=== PATIENT | male | born 1960 | race Caucasian/White ===

== ENCOUNTER 2020-12-23 18:06 | Emergency (ER) | payer MEDICARE, SELFPAY ==
[2020-12-23 18:15] VITALS: BP 164/79; PULSE 74; RESP 16; TEMP 36.8; O2SAT 100; BMI 27.4
[2020-12-23 18:23] VITALS: PULSE 72; O2SAT 97
[2020-12-23 18:30] VITALS: PULSE 78; O2SAT 99
[2020-12-23 18:31] VITALS: BP 152/88; PULSE 72; O2SAT 99
--- NOTE | 2020-12-23 19:49 | [facility].EDGENADL ---
ED Disposition Clinical Impression: Laceration Disposition: Home, Self-Care Condition on Discharge: Good Instructions: DI for Laceration Repair Referrals: Sb Mcdermott [Primary Care Provider] - 3 days Time of Disposition: 19:52 - Critical Care Critical Care Time: No Attestation: On 12/23/20, the high probability of a clinically significant, sudden or life threatening deterioration of the following system(s) required my full and direct attention, intervention and personal management. The time I documented below is in addition to time spent performing reported procedures but includes the following listed in this critical care notation. Medical Decision Making - Medical Records Medical records reviewed: Yes: I reviewed the patient's medical records. - Cory Inquiry Pt receiving controlled substance: No Vital Signs: 12/23/20 18:15 12/23/20 18:23 12/23/20 18:30 Temperature 98.3 F Temperature Source Oral Pulse Rate 72 78 Pulse Rate [Right Radial] 74 Respiratory Rate 16 Blood Pressure Blood Pressure [Right Arm] 164/79 H Blood Pressure Mean Blood Pressure Mean [Right Arm] 107 Blood Pressure Source [Right Arm] Automatic Cuff Blood Pressure Position [Right Arm] Sitting 02 Sat by Pulse Oximetry 100 97 99 Oxygen Delivery Method Room Air 12/23/20 18:31 Temperature Temperature Source Pulse Rate 72 Pulse Rate [Right Radial] Respiratory Rate Blood Pressure 152/88 H Blood Pressure [Right Arm] Blood Pressure Mean 109 Blood Pressure Mean [Right Arm] Blood Pressure Source [Right Arm] Blood Pressure Position [Right Arm] 02 Sat by Pulse Oximetry 99 Oxygen Delivery Method Medical Decision Narrative: 60yo M presents to the emergency department for bleeding from his left ear. Patient is on anticoagulation chronically. Patient been holding pressure while waiting to be seen. Bleeding is stopped at time of my evaluation. He is in no acute distress otherwise. Dermabond was placed over the lesion to ensure he does not accidentally started bleeding again. Patient is appropriate stable for discharge home at this time. General Adult HPI - General Chief complaint: Wound/Laceration Stated complaint: Cut Ear Shaving Time Seen by Provider: 12/23/20 19:49 Mode of Arrival: Ambulatory Limitations: No Limitations Description of Symptoms (Recalled from ER Triage Doc. by RN): Cut ear while shaving - History of Present Illness HPI narrative: 60yo M on a blood thinner reports emergency department after cutting his left ear while shaving. Patient denies any pain. He states he was able to get the bleeding to stop initially but then touched his ear to show his son what he had done and the bleeding started again. He has been unable to control the bleeding since that time. He denies any other acute concerns this time. - Related Data Home Medications Medication Instructions Recorded Confirmed Apixaban [Eliquis] 5 mg PO BID 12/23/20 12/23/20 Allergies Allergy/AdvReac Type Severity Reaction Status Date / Time ciprofloxacin [From Cipro] Allergy Intermediate Verified 12/23/20 18:21 codeine Allergy Verified 12/23/20 18:21 [facility] History - Hepatitis A Screen Drug use history?: No High risk sexual behaviors?: No History of sexually transmitted infection?: No Currently employed?: No Childcare worker?: No Do you have indoor plumbing?: Yes Do you have electricity?: Yes Attestation statement:: This patient has been screened for Hepatitis A risk factors. I have reviewed the patient's past medical history: Yes Family Hx:: Unable to obtain ROS Obtained: Yes All systems reviewed & no additional complaints - ENT Ears, Nose, Mouth, and Throat: Reports as per HPI Physical Exam - General General appearance: alert, in no apparent distress - Head Head exam: atraumatic, normocephalic, normal inspection - Eye Eye exam: Present: normal appearance, PERRL, EOMI - ENT ENT e
[2020-12-23 19:57] VITALS: BP 152/88; PULSE 72; RESP 16; TEMP 36.8; O2SAT 98
== END 2020-12-23 20:03 | disposition home or self-care (01) ==
PROVIDERS: Emergency Provider Family Medicine; PCP Pediatrics
DX: S01.312A Laceration without foreign body of left ear, initial encounter (principal); W26.8XXA Contact with other sharp object(s), not elsewhere classified, initial encounter; Y92.012 Bathroom of single-family (private) house as the place of occurrence of the external cause; Z88.5 Allergy status to narcotic agent
CPT/HCPCS: 99281